=== PATIENT | female | born 1950 | race Caucasian/White ===

== ENCOUNTER 2021-04-08 02:33 | Inpatient (IN) | payer OTHER, MEDICAID, SELFPAY ==
[~2021-04-08] VITALS: Ht 165.1 cm; Wt 131.5 kg
[2021-04-08 02:33] VITALS: BP_SYST 135
--- NOTE | 2021-04-08 02:33 | NUR ---
Patient to ER bed 3 to gown for evaluation. Side rails up.
--- NOTE | 2021-04-08 02:35 | NUR ---
Assumed total care of patient. Patient AAO x0 BIB ALS from [facility] c/o bloody stool and abdominal distention. Patient arrived trach'd and vented. Patient afebrile and tachycardic upon arrival. Patient ventilator mode A/C with Peep of 5 and FiO2 set at 2LPM O2. Patient placed on cardiac surgeon, VSS, breathing even and unlabored, no signs of acute distress noted. Will continue to monitor.
[2021-04-08] MEDS ORDERED: NACL 0.9% 1,000 ML IV SCH (02:45)
[2021-04-08] MEDS ORDERED: PANTOPRAZOLE SODIUM 40 MG/VIAL (PROTONIX) IVP ONE (02:45)
--- NOTE | 2021-04-08 02:50 | NUR ---
# 20 gauge angiocath placed to left wrist. Use of asceptic technique. Opsite placed over site. Blood return noted. Blood for lab drawn from site. Flushed with 10 cc of normal saline. No evidence of infiltration noted. Patient tolerated well.
--- NOTE | 2021-04-08 02:58 | NUR ---
Radiology at bedside for chest xray.
[2021-04-08] MEDS ORDERED: LIP40 GT (03:08)
[2021-04-08] MEDS ORDERED: CHLO473M5 PO (03:09)
[2021-04-08] MEDS ORDERED: FOLI-43 GT (03:11)
[2021-04-08] MEDS ORDERED: HYDR-4038 GT (03:12)
[2021-04-08] MEDS ORDERED: LOSA100T3 GT (03:14)
[2021-04-08] MEDS ORDERED: MULT-1189 GT (03:14)
[2021-04-08] MEDS ORDERED: ALBMDI INH ×2 (03:16→03:17)
[2021-04-08] MEDS ORDERED: ASCO500T20 GT (03:18)
--- NOTE | 2021-04-08 03:18 | NUR ---
Medication reconciliation completed with information provided by [facility]. Any prior medication reconciliation on file was reviewed and corrected.
--- NOTE | 2021-04-08 03:20 | NUR ---
ER Dr. Arriaga at bedside examining patient.
[2021-04-08 03:27] LABS: BASOPHILS % (AUTO) 0.3 % (0.0-2.0); EOSINOPHILS % (AUTO) 0.3 % (0.0-4.0); HEMATOCRIT 32.5 % (36-48); MEAN CORPUSCULAR HEMOGLOBIN 30 pg (27-31); MEAN CORPUSCULAR HGB CONC 34 % (32-36); MEAN CORPUSCULAR VOLUME 90 fL (79.0-98.0); MONOCYTES # (AUTO) 0.9 K/uL (0.0-1.0); MONOCYTES % (AUTO) 9.1 % (1.7-9.3); NEUTROPHILS # (AUTO) 7.7 K/uL (1.8-7.7); NEUTROPHILS % (AUTO) 80.3 % (40.0-70.0); PLATELET COUNT (AUTO) 195 K/uL (130-430); RED BLOOD CELL COUNT(AUTO) 3.61 MIL/uL (4.2-6.2); RED CELL DISTRIBUTION WIDTH 13.8 % (9.0-15.0); WHITE BLOOD COUNT (AUTO) 9.6 K/uL (4.8-10.8)
[2021-04-08 03:45] LABS: INR 0.9 (0.8-1.2); PROTHROMBIN TIME 9.9 SECS (9.5-12.5)
[2021-04-08 04:03] LABS: ANION GAP 4 (5-15); CALCIUM 9.1 mg/dL (8.4-11.0); CHLORIDE 97 mmol/L (98-107); CREATININE 0.53 mg/dL (0.55-1.30); GLUCOSE 130 mg/dL (70-99); POTASSIUM 4.3 mmol/L (3.5-5.1); SODIUM SERUM 132 mmol/L (136-145); UREA NITROGEN, BLOOD 28 mg/dL (8-21)
--- NOTE | 2021-04-08 04:13 | NUR ---
Patient's code status is FULL CODE paperwork completed and placed in chart.
[2021-04-08 04:17] LABS: ALANINE AMINOTRANSFERASE 23 U/L (12-78); ALBUMIN 2.4 g/dL (3.4-4.8); ASPARTATE AMINOTRANSFERASE 21 U/L (10-37); LIPASE 94 U/L (73-393); TOTAL BILIRUBIN 0.2 mg/dL (0.0-1.0)
--- NOTE | 2021-04-08 04:23 | NUR ---
Patient transported to radiology via gurney, accompanied by seble quick RN, and respiratory therapist.
--- NOTE | 2021-04-08 04:52 | NUR ---
Returned from radiology, back to [facility]. VSS, breathing even and unlabored. No signs of acute distress noted.
--- NOTE | 2021-04-08 05:22 | NUR ---
Patient resting quietly. No acute distress noted. Vital signs within normal range.
--- NOTE | 2021-04-08 06:00 | NUR ---
Patient will be admitted to care of Dr. Bradshaw. Admitted to TELE unit. Will go to room pending. Belongings list completed. Complete and up to date summary report printed. SBAR report to be given at bedside with opportunity for questions.
--- NOTE | 2021-04-08 06:54 | NUR ---
Respiratory therapist at bedside.
--- NOTE | 2021-04-08 07:14 | NUR ---
Report given to YVONNE Ngo for continuation of care.
--- NOTE | 2021-04-08 07:15 | NUR ---
REPORT RECEIVED FROM YVONNE KUMAR FOR CONTINUING CARE
[2021-04-08 07:53] LABS: BASOPHILS % (AUTO) 0.2 % (0.0-2.0); EOSINOPHILS % (AUTO) 0.4 % (0.0-4.0); HEMATOCRIT 30.3 % (36-48); HEMOGLOBIN 10.3 g/dL (12.0-16.0); LYMPHOCYTES # (AUTO) 1.3 K/uL (1.0-5.5); LYMPHOCYTES % (AUTO) 15.1 % (20.5-51.5); MEAN CORPUSCULAR HEMOGLOBIN 31 pg (27-31); MEAN CORPUSCULAR HGB CONC 34 % (32-36); MEAN CORPUSCULAR VOLUME 90 fL (79.0-98.0); MONOCYTES # (AUTO) 0.8 K/uL (0.0-1.0); MONOCYTES % (AUTO) 9.4 % (1.7-9.3); NEUTROPHILS # (AUTO) 6.2 K/uL (1.8-7.7); NEUTROPHILS % (AUTO) 74.9 % (40.0-70.0); PLATELET COUNT (AUTO) 182 K/uL (130-430); RED BLOOD CELL COUNT(AUTO) 3.37 MIL/uL (4.2-6.2); RED CELL DISTRIBUTION WIDTH 13.7 % (9.0-15.0); WHITE BLOOD COUNT (AUTO) 8.3 K/uL (4.8-10.8)
[2021-04-08 08:14] LABS: ALANINE AMINOTRANSFERASE 25 U/L (12-78); ALBUMIN 2.1 g/dL (3.4-4.8); ANION GAP 7 (5-15); ASPARTATE AMINOTRANSFERASE 13 U/L (10-37); CALCIUM 8.7 mg/dL (8.4-11.0); CHLORIDE 99 mmol/L (98-107); CREATININE 0.48 mg/dL (0.55-1.30); GLUCOSE 118 mg/dL (70-99); POTASSIUM 4.3 mmol/L (3.5-5.1); SODIUM SERUM 134 mmol/L (136-145); TOTAL BILIRUBIN 0.4 mg/dL (0.0-1.0); UREA NITROGEN, BLOOD 24 mg/dL (8-21)
[2021-04-08 08:50] VITALS: BP_SYST 136
--- NOTE | 2021-04-08 08:50 | NUR ---
PT TRANSFERRED TO TELE 122A WITH RT
--- NOTE | 2021-04-08 09:00 | NUR ---
ADMIT NOTE Received pt from ER to the floor with a diagnosis of GI bleed. Admission process initiated. Patient oriented to pain management but unable to verbalize understanding. Patient also unable to demonstrate call light use. Will monitor closely.
--- NOTE | 2021-04-08 09:21 | NUR ---
CONSULTATION PAGED REASON FOR CONSULTATION:GI BLEED WAS CONSULT CALLED?Y PERSON WHO WAS NOTIFIED:MARCIN CONSULTING PHYSICIAN:ROBE PERRY BICYCLE COURIER SPECIALTY:GI BICYCLE COURIER PHONE NUMBER:[phone] REQUESTING PHYSICIAN:NIRMAL DE JESUS
--- NOTE | 2021-04-08 09:27 | NUR ---
CONSULTATION PAGED REASON FOR CONSULTATION:VENTA MAINTENANCE WAS CONSULT CALLED?Y PERSON WHO WAS NOTIFIED: CONSULTING PHYSICIAN: SUPER[employer]OR [employer] SPECIALTY:PULMONARY SUPER[employer]OR [employer] PHONE NUMBER:[phone] REQUESTING PHYSICIAN:NIRMAL DE JESUS
[2021-04-08 09:31] VITALS: BP_SYST 112
[2021-04-08] MEDS ORDERED: D5/0.45 NS 1,000 ML IV SCH (10:45)
[2021-04-08] MEDS ORDERED: DOCUSATE SODIUM 100 MG CAPSULE PO PRN (10:45)
[2021-04-08] MEDS ORDERED: ONDANSETRON HCL 4 MG/2 ML VIAL IVP PRN (10:45)
[2021-04-08] MEDS ORDERED: ACETAMINOPHEN 325 MG TABLET PO PRN (10:45)
[2021-04-08] MEDS ORDERED: NALOXONE HCL 0.4 MG/ML AMP (NARCAN) IVP PRN (10:45)
[2021-04-08] MEDS ORDERED: HYDROcodone/ACETAMIN 5-325 MG TAB (NORCO/ VICODIN) PO PRN (10:45)
[2021-04-08] MEDS ORDERED: metroNIDAZOLE 500 mg/NS 100 ML IV SCH (11:00)
[2021-04-08] MEDS ORDERED: IPRATROPIUM/ALBUTEROL SULFATE 3 ML AMPUL.NEB (DUONEB) INH SCH (11:15)
[2021-04-08] MEDS ORDERED: PANTOPRAZOLE SODIUM 40 MG/VIAL (PROTONIX) IVP SCH (11:15)
[2021-04-08 11:36] LABS: FREE T4 (FREE THYROXINE) 0.9 ng/dL (0.6-1.6); PHOSPHORUS 2.6 mg/dL (2.7-4.5); THYROID STIMULATING HORMONE 1.31 uIu/mL (0.34-4.82)
[2021-04-08] MEDS: NACL 0.9% 1,000 ML IV SCH ×2 (12:08→23:48)
[2021-04-08] MEDS: LEVOFLOXACIN IN DEXTROSE 5 % 100 ML IV SCH (12:08)
--- NOTE | 2021-04-08 12:10 | NUR ---
IV FLUID AND ANTIBIOTIC IV FLUIDS AND IV ANTIBIOTIC STARTED. TOLERATING CURRENT VENT SETTINGS. NO SIGN OF PAIN. REPOSITIONED. FALL AND SAFETY CHECKS DONE. WILL MONITOR.
[2021-04-08] MEDS: hydrALAZINE HCL 25 MG TABLET GT SCH ×2 (14:00→21:32)
--- NOTE | 2021-04-08 14:33 | NUR ---
MD ROUNDS DR.A KELSEY SAW PATIENT AT BEDSIDE. WAS AWARE THAT THE HOSPITAL DOES NOT HAVE A LUER-LOCK TYPE OF GTUBE VALVE. EXHAUSTED ALL EFFORTS. WILL TRY TO REACH OUT TO FAMILY OR THE CARE CENTER IF THE VALVE OR THE SYRINGE AVAILABLE. TABLETS NOT GIVEN.
--- NOTE | 2021-04-08 14:50 | NUR ---
SOHAIL LAMAS. WAS ABLE TO SPEAK TO DAUGHTER, KINJAL AND WAS UPDATED WITH PATIENT'S CURRENT PLAN OF CARE. SHE SAID SHE WILL TRY TO CALL THE FACILITY TO GET A VALVE FOR THE PATIENT. SAFETY CHECKS DONE. WILL MONITOR.
[2021-04-08] MEDS: IPRATROPIUM/ALBUTEROL SULFATE 3 ML AMPUL.NEB (DUONEB) INH SCH ×3 (15:07→23:28)
[2021-04-08] MEDS: metroNIDAZOLE 500 mg/NS 100 ML IV SCH ×2 (15:13→21:33)
--- NOTE | 2021-04-08 17:35 | NUR ---
GTUBE VALVE WAS ABLE TO TALK TO CAMELIA FROM [facility] AND SHE CONFIRMED THAT THEY WILL SEND IN A SHAINA VALVE, A COUPLE OF SYRINGES AND THE TUBE, THROUGH THE PATIENT'S DAUGHTER, KINJAL.
[2021-04-08] MEDS ORDERED: GOLYTELY / COLYTE SOLUTION 4 LITERS GT ONE (18:07)
[2021-04-08] MEDS: METOCLOPRAMIDE HCL 10 MG/2 ML VIAL IVP SCH ×2 (18:19→23:39)
[2021-04-08 18:23] VITALS: BP_SYST 128
--- NOTE | 2021-04-08 18:48 | NUR ---
CLOSING NOTES RESTING. NO SIGN OF PAIN. [facility]. IV FLUIDS INFUSING WELL. GTUBE INTACT. FALL AND SAFETY CHECKS IN PLACE. WILL ENDORSE TO NIGHT NURSE.
[2021-04-08 19:35] VITALS: BP_SYST 137
--- NOTE | 2021-04-08 19:35 | NUR ---
INITIAL NOTE AT INITIAL ASSESSMENT, PATIENT IS RESTING IN BED, STABLE, NO SIGNS OF RESPIRATORY DISTRESS. PATIENT SHOWS NO PAIN PER FLACC SCALE USED. PLAN OF CARE FOR THE EVENING IS COMMUNICATED WITH THE PATIENT. PATIENT IS UNABLE TO DEMONSTRATE CORRECT USAGE OF CALL LIGHT AT THIS TIME DUE TO COGNITIVE IMPAIRMENT; FREQUENT ROUNDING WILL BE COMPLETED THROUGHOUT THE NIGHT TO MEET ALL PATIENT NEEDS. BED IS LOCKED, ALARMED, AND AT THE LOWEST LEVEL. FALL SAFETY EDUCATION PROVIDED. FALL, SAFETY, AND RESPIRATORY PRECAUTIONS WILL BE TAKEN THROUGHOUT THE SHIFT.
[2021-04-08] MEDS: CHLORHEXIDINE GLUCONATE 15 ML/DOSE, 480 ML MM SCH (20:28)
[2021-04-08] MEDS: ATORVASTATIN 20 MG TABLET GT SCH (20:34)
--- NOTE | 2021-04-08 22:30 | NUR ---
HYGIENE CARE NOTE HYGIENE CARE IS PROVIDED AT THIS TIME, FRESH LINENS PROVIDED, AND PATIENT IS REPOSITIONED FOR COMFORT. PATIENT TOLERATED WELL. CALL LIGHT PLACED WITHIN REACH. BED IS LOCKED, ALARMED, AND AT THE LOWEST LEVEL.
--- NOTE | 2021-04-08 23:00 | NUR ---
COMMUNICATION W/ DAUGHTER COMMUNICATED WITH PATIENT'S DAUGHTER KINJAL [phone], UPDATE GIVEN TO HER. ALL QUESTIONS ANSWERED.
[2021-04-09 00:48] VITALS: BP_SYST 154
--- NOTE | 2021-04-09 02:30 | NUR ---
GOLYTELY STARTED / GTUBE SUPPLIES RECEIVED PATIENT'S DAUGHTER BROUGHT IN SUPPLIES FOR PATIENT'S G-TUBE. G TUBE ACCESS WAS ESTABLISHED WITH SUPPLIES. PATIENT IS STARTED ON GOLYTELY AT THIS TIME, WILL MONITOR CLOSELY FOR TOLERANCE.
[2021-04-09] MEDS: IPRATROPIUM/ALBUTEROL SULFATE 3 ML AMPUL.NEB (DUONEB) INH SCH ×6 (03:34→23:26)
[2021-04-09] MEDS: METOCLOPRAMIDE HCL 10 MG/2 ML VIAL IVP SCH ×4 (05:32→23:56)
--- NOTE | 2021-04-09 06:35 | NUR ---
CLOSING NOTE ABOUT 800 ML OF GOLYTELY WAS GIVEN TO PATIENT DURING THE SHIFT, PATIENT TOLERATED WELL WITH NO RESIDUALS. SHE ALSO CONTINUED HAVING DARK LOOSE STOOLS WHICH ARE GETTING INCIDENT RESPONSE MANAGER SINCE GOLYTELY WAS INITIATED- DR. HILL MADE AWARE. PATIENT SLEPT WELL THROUGHOUT THE SHIFT, NO SHORTNESS OF BREATH NOTED. AT THIS TIME, PATIENT IS RESTING IN BED, STABLE, NO SIGNS OF RESPIRATORY DISTRESS. BED IS LOCKED, ALARMED, AND AT THE LOWEST LEVEL. FALL, SAFETY, AND RESPIRATORY PRECAUTIONS HAVE BEEN TAKEN THROUGHOUT THE SHIFT. WILL CONTINUE TO MONITOR UNTIL SHIFT REPORT IS GIVEN AT BEDSIDE TO AM NURSE.
[2021-04-09] MEDS: metroNIDAZOLE 500 mg/NS 100 ML IV SCH ×3 (06:44→22:15)
[2021-04-09] MEDS: hydrALAZINE HCL 25 MG TABLET GT SCH ×3 (06:53→22:00)
[2021-04-09 06:54] LABS: BASOPHILS % (AUTO) 0.2 % (0.0-2.0); EOSINOPHILS % (AUTO) 0.5 % (0.0-4.0); HEMOGLOBIN 9.7 g/dL (12.0-16.0); LYMPHOCYTES # (AUTO) 1.1 K/uL (1.0-5.5); LYMPHOCYTES % (AUTO) 13.7 % (20.5-51.5); MEAN CORPUSCULAR HEMOGLOBIN 30 pg (27-31); MEAN CORPUSCULAR HGB CONC 34 % (32-36); MEAN CORPUSCULAR VOLUME 90 fL (79.0-98.0); MONOCYTES # (AUTO) 0.7 K/uL (0.0-1.0); NEUTROPHILS % (AUTO) 76.6 % (40.0-70.0); PLATELET COUNT (AUTO) 180 K/uL (130-430); RED CELL DISTRIBUTION WIDTH 13.7 % (9.0-15.0); WHITE BLOOD COUNT (AUTO) 7.8 K/uL (4.8-10.8)
--- NOTE | 2021-04-09 07:40 | NUR ---
Nutrition Update Vish Scale 14 noted. Pt admitted for GI Bleed Diet: NPO BMI: 48.3 kg/m2 RD to follow per nutrition care standards.
[2021-04-09 08:00] VITALS: BP_SYST 151
[2021-04-09] MEDS: ASCORBIC ACID 500 MG TABLET GT SCH (08:51)
[2021-04-09] MEDS: PANTOPRAZOLE SODIUM 40 MG/VIAL (PROTONIX) IVP SCH (08:51)
[2021-04-09] MEDS: MULTIVITS,CA,MINERALS/IRON/FA 1 TABLET GT SCH (08:51)
[2021-04-09] MEDS: LOSARTAN POTASSIUM 50 MG TABLET (COZAAR) GT SCH (08:51)
[2021-04-09] MEDS: FOLIC ACID 1 MG TABLET GT SCH (08:51)
[2021-04-09] MEDS: CHLORHEXIDINE GLUCONATE 15 ML/DOSE, 480 ML MM SCH ×2 (08:53→22:45)
[2021-04-09 09:05] LABS: ANION GAP 10 (5-15); CALCIUM 8.6 mg/dL (8.4-11.0); CHLORIDE 101 mmol/L (98-107); GLUCOSE 100 mg/dL (70-99); POTASSIUM 3.7 mmol/L (3.5-5.1); SODIUM SERUM 137 mmol/L (136-145); UREA NITROGEN, BLOOD 24 mg/dL (8-21)
[2021-04-09 09:06] LABS: CREATININE 0.55 mg/dL (0.55-1.30); PHOSPHORUS 2.6 mg/dL (2.7-4.5)
[2021-04-09] MEDS ORDERED: BISACODYL 10 MG/SUPPOSITORY RC ONE (10:15)
[2021-04-09] MEDS: LEVOFLOXACIN IN DEXTROSE 5 % 100 ML IV SCH (11:35)
[2021-04-09 12:02] VITALS: BP_SYST 139
[2021-04-09] MEDS: NACL 0.9% 1,000 ML IV SCH ×2 (13:40→16:35)
[2021-04-09] MEDS ORDERED: MUPIROCIN 2% TOPICAL OINTMENT 22 GM NS ONE (13:45)
--- NOTE | 2021-04-09 14:06 | NUR ---
Dietitian Recommendations *Recommend: resume EN support when medically appropriate. *Recommend: Jevity 1.2 at 65ml/hr, FWF 200ml Q6H via GT. Provides: 1872 kcal, 86gm protein and 1258ml free water daily. Meets: 99% of lower end of estimated calorie needs and 95% of upper end of estimated protein needs. Please see Nutritional Assessment for details. SP, RD
[2021-04-09 16:01] VITALS: BP_SYST 134
--- NOTE | 2021-04-09 17:00 | NUR ---
Note Pt has been resting in bed all shift with daughter Sosa at bedside since start of shift. Pt's Mechanical Ventilation all shift with RT working with pt all shift on ventilation needs and scheduled protocols. Pt was checked on by Dr Hines this am. Pt's GT now in place after being displaced this am. Pt was given her Golytely through GT and Dulcolax suppository was given as well. Pt's tele unit attached and intact all shift. Pt was given hygiene care and partial bed bath throughout the shift for stool/urine incontinence. Pt was turned q2' throughout the shift for promotion of circulation of back and sacral areas. Pt stable and quiet at this time. Call light within reach and pt next to nurses' station all shift for close observation.
--- NOTE | 2021-04-09 18:35 | NUR ---
Note Pt resting in bed with ventilation on and RT taking care O2 needs. Pt has new IV in right forearm - IV in left forearm was out. Pt was checked on q1' and PRN all shift for needs and care. Pt's bed in low position and bed alarm on all shift. Pt was given hygiene care for urine and bowel incontinence all shift. GT site intact and patent. Tele unit attached and intact all shift. Call light within reach.
[2021-04-09 20:10] VITALS: BP_SYST 130
--- NOTE | 2021-04-09 20:30 | NUR ---
WHILE ASSESSING PT, G-TUBE WAS PULLED OUT OF PT ABDOMEN. STATED FROM YVONNE RUIZ THAT THE MD (PRINCESS CABRAL) IS AWARE OF THE SITUATION AND WAS TOLD TO REINSERT THE G-TUBE TO PRESERVE THE STOMA ASSESSING THE G-TUBE AND W/ PT FAMILY IN ROOM, DECIDED TO WAIT ON \THE DR TO REINSERT. G-TUBE WAS ALSO DIRTY AND CLOGGED. BIOLOGICAL SCIENCE TECHNICIAN AWARE OF DECISION TO NOT RE-INSERT. JUVENTINO FRANKS RN
[2021-04-09] MEDS: ATORVASTATIN 20 MG TABLET GT SCH (21:00)
[2021-04-09] MEDS: MUPIROCIN 2% TOPICAL OINTMENT 22 GM NS SCH (22:58)
[2021-04-10] VITALS (7 sets, daily range): BP systolic 132–158
[2021-04-10] MEDS: IPRATROPIUM/ALBUTEROL SULFATE 3 ML AMPUL.NEB (DUONEB) INH SCH ×5 (03:46→20:48)
[2021-04-10] MEDS: hydrALAZINE HCL 25 MG TABLET GT SCH ×4 (06:00→21:55)
[2021-04-10 06:29] LABS: BASOPHILS % (AUTO) 0.3 % (0.0-2.0); EOSINOPHILS % (AUTO) 0.7 % (0.0-4.0); HEMOGLOBIN 9.5 g/dL (12.0-16.0); LYMPHOCYTES # (AUTO) 1.2 K/uL (1.0-5.5); LYMPHOCYTES % (AUTO) 16.5 % (20.5-51.5); MEAN CORPUSCULAR HEMOGLOBIN 31 pg (27-31); MEAN CORPUSCULAR HGB CONC 34 % (32-36); MEAN CORPUSCULAR VOLUME 90 fL (79.0-98.0); MONOCYTES # (AUTO) 0.6 K/uL (0.0-1.0); MONOCYTES % (AUTO) 8.3 % (1.7-9.3); NEUTROPHILS # (AUTO) 5.3 K/uL (1.8-7.7); NEUTROPHILS % (AUTO) 74.2 % (40.0-70.0); PLATELET COUNT (AUTO) 179 K/uL (130-430); RED CELL DISTRIBUTION WIDTH 13.9 % (9.0-15.0); WHITE BLOOD COUNT (AUTO) 7.1 K/uL (4.8-10.8)
[2021-04-10] MEDS: METOCLOPRAMIDE HCL 10 MG/2 ML VIAL IVP SCH ×3 (06:37→17:02)
[2021-04-10] MEDS: metroNIDAZOLE 500 mg/NS 100 ML IV SCH ×3 (06:37→21:57)
[2021-04-10 06:43] LABS: ANION GAP 5 (5-15); CALCIUM 8.5 mg/dL (8.4-11.0); CHLORIDE 105 mmol/L (98-107); CREATININE 0.49 mg/dL (0.55-1.30); GLUCOSE 85 mg/dL (70-99); PHOSPHORUS 2.7 mg/dL (2.7-4.5); POTASSIUM 3.9 mmol/L (3.5-5.1); SODIUM SERUM 139 mmol/L (136-145); UREA NITROGEN, BLOOD 21 mg/dL (8-21)
--- NOTE | 2021-04-10 07:22 | NUR ---
CLOSING NOTE: NO SIGNIFICANT EVENTS THROUGHOUT THE NIGHT. PT FAMILY AWARE OF THE G-TUBE NOT REINSERTED AND MEDICATION NOT GIVEN. SPOKEN TO KINJAL (TEJAS) WAS THE ONE SPOKEN TOO. DR CABRAL AT BEDSIDE AT THIS TIME VERBAL ORDER GIVEN FOR NGT TO BE PLACED, GOLYTLY TO BE FINISHED AND CXR FOR PLACEMENT. WILL ENDORSE TO YVONNE RUIZ RN
[2021-04-10] MEDS: BISACODYL 10 MG/SUPPOSITORY RC SCH (09:00)
[2021-04-10] MEDS: FOLIC ACID 1 MG TABLET GT SCH (09:00)
[2021-04-10] MEDS: MULTIVITS,CA,MINERALS/IRON/FA 1 TABLET GT SCH (09:00)
[2021-04-10] MEDS: ASCORBIC ACID 500 MG TABLET GT SCH (09:00)
[2021-04-10] MEDS: CHLORHEXIDINE GLUCONATE 15 ML/DOSE, 480 ML MM SCH ×2 (09:00→20:56)
[2021-04-10] MEDS: LOSARTAN POTASSIUM 50 MG TABLET (COZAAR) GT SCH (09:00)
[2021-04-10] MEDS: LEVOFLOXACIN IN DEXTROSE 5 % 100 ML IV SCH (11:55)
[2021-04-10] MEDS: MUPIROCIN 2% TOPICAL OINTMENT 22 GM NS SCH ×2 (11:56→20:30)
[2021-04-10] MEDS: PANTOPRAZOLE SODIUM 40 MG/VIAL (PROTONIX) IVP SCH (11:56)
--- NOTE | 2021-04-10 12:00 | NUR ---
NOTE Pt has NGT placed by [facility] RN - x-ray to confirm placement was done. Pt's daughters Gianna have been at bedside since 0930am. Pt resting in bed and ventilation on going to oxygenate pt. O2 sats are 94%-95%. Pt was given hygiene care and bed bath at 09am and 11am. Pt also given Golytely through NGT q1' as per Dr Hines's order. Pt was seen and assessed by Dr Leos, Dr Hines and Dr Tian this am. Pt has no needs at this time. Family at bedside. Call light within reach. Pt's bed alarm on and bed in low position all shift. Pt checked on q1' and PRN all shift for needs and care. GT site covered with dressing. Pt maintained with safety and isolation precautions all shift.
[2021-04-10] MEDS: NACL 0.9% 1,000 ML IV SCH (16:20)
--- NOTE | 2021-04-10 18:35 | NUR ---
Note Pt sitting up in bed with HOB at 75'. Pt's trach intact and oxygenating pt well all shift. Pt's NGT is intact and patent - using to give pt Golytely q1'. Pt was changed and cleaned frequently for urine/bowel incontinence. Pt's stool still black and loose. Pt was checked on q1' and PRN all shift for needs and care. Pt's bed in low position and bed alarm on all shift. Tele unit intact and attached all shift. Call light within reach. Pt next to nurses' station for close observation.
--- NOTE | 2021-04-10 19:41 | NUR ---
OPENING NOTES: Received report from dayshift nurse. Patient is resting in bed, awake and in stable condition. T Bar noted at 5L, tolerating well. IV noted on right hand with dry and intact dressing. NG tube noted on right nostril. Ensured all safety precautions. Bed is locked and in the lowest position with alarm on and call light within reach.
[2021-04-10] MEDS: ATORVASTATIN 20 MG TABLET GT SCH (20:29)
--- NOTE | 2021-04-10 20:30 | NUR ---
MEDICATION ADMINISTRATION PATIENT IS RESTING WITHOUT ANY SIGNS OF DISTRESS OR DISCOMFORT. ADMINISTERED SCHEDULED MEDICATION BY ORDER OF MD. PATIENT TOLERATED WELL. PATIENT WITH LARGE BROWN WATERY BOWEL MOVEMENT AT THIS TIME GAVE PATIENT BED BATH TOLERATED CARE WELL
[2021-04-10] MEDS: NEOMY SULF/BACITRAC ZN/POLY 28 GM OINT..GM. TP PRN (20:31)
--- NOTE | 2021-04-10 21:55 | NUR ---
PATIENT HAD PRESENCE OF SECRETIONS SUCTION PROVIDED PATIENT TOLERATED WELL WILL CONTINUE TO MONITOR
[2021-04-11] VITALS: BP_SYST 149
--- NOTE | 2021-04-11 | NUR ---
RN ROUNDS PATIENT IS RESTING IN BED. NO SIGNS OF DISTRESS OR DISCOMFORT PATIENT IS RECEIVING OXYGEN VIA T BAR AT 5L TOLERATING WELL GOLYTELY IS BEING ADMINISTERED ORDERED BY MD VIA NG TUBE PATIENT TOLERATING WELL WILL CONTINUE TO MONITOR
[2021-04-11] MEDS: METOCLOPRAMIDE HCL 10 MG/2 ML VIAL IVP SCH ×3 (00:35→11:39)
--- NOTE | 2021-04-11 05:23 | NUR ---
RT NOTES TRACH CARE DONE WITHOUT INCIDENT. PT REMAIN ON 28% COOL AEROSOL TOLERATING WELL. SXN PRN WITH SMALL TO MODERATE AMOUNT OF THICK YELLOW SECRETIONS. NO RESP DISTRESS NOTED. AMBU BAG IS AT BEDSIDE.
[2021-04-11] MEDS: NACL 0.9% 1,000 ML IV SCH (06:14)
[2021-04-11] MEDS: hydrALAZINE HCL 25 MG TABLET GT SCH ×3 (06:16→22:09)
[2021-04-11] MEDS: metroNIDAZOLE 500 mg/NS 100 ML IV SCH ×3 (06:17→22:10)
[2021-04-11 06:52] LABS: BASOPHILS % (AUTO) 0.3 % (0.0-2.0); EOSINOPHILS # (AUTO) 0.1 K/uL (0.0-0.4); EOSINOPHILS % (AUTO) 0.8 % (0.0-4.0); HEMATOCRIT 34.2 % (36-48); HEMOGLOBIN 11.3 g/dL (12.0-16.0); LYMPHOCYTES # (AUTO) 1.9 K/uL (1.0-5.5); LYMPHOCYTES % (AUTO) 19.8 % (20.5-51.5); MEAN CORPUSCULAR HEMOGLOBIN 30 pg (27-31); MEAN CORPUSCULAR HGB CONC 33 % (32-36); MEAN CORPUSCULAR VOLUME 92 fL (79.0-98.0); MONOCYTES # (AUTO) 0.6 K/uL (0.0-1.0); MONOCYTES % (AUTO) 6.3 % (1.7-9.3); NEUTROPHILS # (AUTO) 7.1 K/uL (1.8-7.7); NEUTROPHILS % (AUTO) 72.8 % (40.0-70.0); PLATELET COUNT (AUTO) 251 K/uL (130-430); RED BLOOD CELL COUNT(AUTO) 3.74 MIL/uL (4.2-6.2); RED CELL DISTRIBUTION WIDTH 14.1 % (9.0-15.0); WHITE BLOOD COUNT (AUTO) 9.7 K/uL (4.8-10.8)
--- NOTE | 2021-04-11 07:15 | NUR ---
RT NOTE: 0715 Pt placed on vent per Dr Tian due to respiratory distress. Prior to placing pt on vent, pt was tachypneic, tachycardic, and SpO2 low. Inspected trach and it was almost out of stoma. Repositioned and slid trach back in place. Adjusted trach ties. Placed pt on vent. Confirmed placement with auscultation and improving vital signs. Will continue on vent support at this time. Trach is secure. Addendum: 04/11/21 at 0958 by Shanique Villa RT Amended: Links added.
--- NOTE | 2021-04-11 07:15 | NUR ---
DR. COX AT BEDSIDE, PT WITH DECREASED O2. PER DR. COX PATIENT TO GO BACK ON VENT. RT CALLED
[2021-04-11] MEDS: IPRATROPIUM/ALBUTEROL SULFATE 3 ML AMPUL.NEB (DUONEB) INH SCH ×5 (07:22→23:35)
--- NOTE | 2021-04-11 07:30 | NUR ---
Opening Note Timothy night warehouse manager nurse, called rapid response, RT shahzad) at bedside, reinserted trache. Patient stable, o2 at 98% with ventilator settings. IV noted on right hand with dry and intact dressing. NG tube noted on right nostril. Ensured all safety precautions. Bed is locked and in the lowest position with alarm on and call light within reach.
[2021-04-11 07:45] LABS: ANION GAP 13 (5-15); CALCIUM 8.7 mg/dL (8.4-11.0); CHLORIDE 105 mmol/L (98-107); CREATININE 0.55 mg/dL (0.55-1.30); GLUCOSE 71 mg/dL (70-99); POTASSIUM 3.8 mmol/L (3.5-5.1); SODIUM SERUM 142 mmol/L (136-145); UREA NITROGEN, BLOOD 21 mg/dL (8-21)
--- NOTE | 2021-04-11 07:45 | NUR ---
CLOSING NOTES: PATIENT WAS PLACED ON VENT, IN STABLE CONDITION. PER DR. COX MONITOR PATIENT AND UPDATE ANY CHANGES. DAYSHIFT NURSE ALSO AT BEDSIDE. REPORT WAS GIVEN. PATIENT STILL HAVING BROWN WATERY STOOLS, DR. CABRAL AT BEDSIDE AND INFORMATION REGARDING BOWEL MOVEMENT WAS GIVEN. GOLYTELY WAS COMPLETED BY 0600 TODAY. ALL NEEDS WERE MET THROUGHOUT SHIFT AND PATIENT HAS BEEN ENDORSED TO DAYSHIFT NURSE.
[2021-04-11 08:00] VITALS: BP_SYST 140
[2021-04-11] MEDS: BISACODYL 10 MG/SUPPOSITORY RC SCH (08:59)
[2021-04-11] MEDS: FOLIC ACID 1 MG TABLET GT SCH (09:21)
[2021-04-11] MEDS: MULTIVITS,CA,MINERALS/IRON/FA 1 TABLET GT SCH (09:21)
[2021-04-11] MEDS: PANTOPRAZOLE SODIUM 40 MG/VIAL (PROTONIX) IVP SCH (09:22)
[2021-04-11] MEDS: ASCORBIC ACID 500 MG TABLET GT SCH (09:22)
[2021-04-11] MEDS: LOSARTAN POTASSIUM 50 MG TABLET (COZAAR) GT SCH (09:22)
[2021-04-11] MEDS: CHLORHEXIDINE GLUCONATE 15 ML/DOSE, 480 ML MM SCH ×2 (09:23→22:21)
[2021-04-11] MEDS: MUPIROCIN 2% TOPICAL OINTMENT 22 GM NS SCH ×2 (09:23→22:14)
--- NOTE | 2021-04-11 09:29 | NUR ---
Spoke to Dr. Hines discussed CT results, orders for coloscopy and peg tube placement, daughter at bedside, will get consent
--- NOTE | 2021-04-11 09:40 | NUR ---
daughter at bedside (Sosa) signed consent for egd and coloscopy, Donny signed consents.
[2021-04-11] MEDS: LEVOFLOXACIN IN DEXTROSE 5 % 100 ML IV SCH (11:39)
[2021-04-11 12:05] VITALS: BP_SYST 140
[2021-04-11] MEDS ORDERED: GOLYTELY / COLYTE SOLUTION 4 LITERS PO ONE (14:00)
--- NOTE | 2021-04-11 14:00 | NUR ---
Daughter at bedside Narda Stated that she needs to be the one to sigbn consents, new consents printed and signed, need to be signed by . Donny will endorse to Donny and to next nurse.
[2021-04-11 16:12] VITALS: BP_SYST 154
--- NOTE | 2021-04-11 18:49 | NUR ---
Transfer to bed 120 A
--- NOTE | 2021-04-11 18:50 | NUR ---
Closing Note Patient on vent, IN STABLE CONDITION. PER DR. COX MONITOR PATIENT AND UPDATE ANY CHANGES. PATIENT STILL HAVING BROWN WATERY STOOLS, continued to give go lytely, RT at bedside assisting with vent set up with transfer to new room. Will endorse to caustic cresylate shift superintendent nurse.
--- NOTE | 2021-04-11 19:15 | NUR ---
OPENING NOTES: Patient in bed, eyes closed, breathing evenly and nonlabored on trach to vent, patient tolerating well, SPO2 at 98%. No s/s of distress, HOB elevated. Patient has an IV on the L wrist 22G, patent, benign, and flushing. No s/s of infection or infiltration. Patient has an NGT through the right nostril. Fall/safety/isolation precaution. Will continue to monitor. Addendum: 04/12/21 at 0239 by Peace Pires RN Received patient report from morning shift nurse.
[2021-04-11 20:00] VITALS: BP_SYST 154
[2021-04-11] MEDS: ATORVASTATIN 20 MG TABLET GT SCH (22:08)
--- NOTE | 2021-04-12 | NUR ---
ROUNDS: Patient in bed, eyes closed, breathing evenly and nonlabored with trach to vent. Patient tolerating it well, SPO2 at 99%. No s/s of distress. All needs met at this time.
[2021-04-12 01:00] VITALS: BP_SYST 144
[2021-04-12 01:26] VITALS: BP_SYST 144
[2021-04-12] MEDS: IPRATROPIUM/ALBUTEROL SULFATE 3 ML AMPUL.NEB (DUONEB) INH SCH ×5 (03:49→20:09)
[2021-04-12] MEDS: hydrALAZINE HCL 25 MG TABLET GT SCH ×4 (06:00→22:59)
[2021-04-12] MEDS: NACL 0.9% 1,000 ML IV SCH ×3 (06:15→21:40)
[2021-04-12] MEDS: metroNIDAZOLE 500 mg/NS 100 ML IV SCH ×3 (06:16→22:55)
--- NOTE | 2021-04-12 06:48 | NUR ---
CLOSING NOTES: Patient in bed, eyes closed, breathing evenly and nonlabored on trach to vent, patient tolerating well, SPO2 at 99%. No s/s of distress, HOB elevated. Patient has an IV on the L wrist 22G, patent, benign, and flushing. No s/s of infection or infiltration. Patient has an NGT through the right nostril. Fall/safety/isolation precaution. Will continue to monitor and endorse care to morning shift rn.
[2021-04-12 07:06] LABS: BASOPHILS % (AUTO) 0.5 % (0.0-2.0); EOSINOPHILS # (AUTO) 0.1 K/uL (0.0-0.4); EOSINOPHILS % (AUTO) 1.5 % (0.0-4.0); HEMATOCRIT 30.1 % (36-48); HEMOGLOBIN 10.2 g/dL (12.0-16.0); LYMPHOCYTES # (AUTO) 1.2 K/uL (1.0-5.5); LYMPHOCYTES % (AUTO) 21.4 % (20.5-51.5); MEAN CORPUSCULAR HEMOGLOBIN 31 pg (27-31); MEAN CORPUSCULAR HGB CONC 34 % (32-36); MEAN CORPUSCULAR VOLUME 91 fL (79.0-98.0); MONOCYTES # (AUTO) 0.6 K/uL (0.0-1.0); NEUTROPHILS # (AUTO) 3.7 K/uL (1.8-7.7); NEUTROPHILS % (AUTO) 65.6 % (40.0-70.0); PLATELET COUNT (AUTO) 208 K/uL (130-430); RED BLOOD CELL COUNT(AUTO) 3.32 MIL/uL (4.2-6.2); RED CELL DISTRIBUTION WIDTH 13.9 % (9.0-15.0); WHITE BLOOD COUNT (AUTO) 5.7 K/uL (4.8-10.8)
[2021-04-12] MEDS ORDERED: SIMETHICONE 40 MG/0.6 ML ML ONE (07:09)
[2021-04-12 07:33] LABS: ANION GAP 9 (5-15); CALCIUM 8.2 mg/dL (8.4-11.0); CHLORIDE 105 mmol/L (98-107); CREATININE 0.47 mg/dL (0.55-1.30); GLUCOSE 118 mg/dL (70-99); SODIUM SERUM 143 mmol/L (136-145); UREA NITROGEN, BLOOD 13 mg/dL (8-21)
[2021-04-12 07:46] LABS: INR 1.1 (0.8-1.2); PROTHROMBIN TIME 11.1 SECS (9.5-12.5)
[2021-04-12 08:00] VITALS: BP_SYST 167
--- NOTE | 2021-04-12 08:00 | NUR ---
pt kept npo for egp/peg and colonoscopy.
[2021-04-12 08:28] LABS: POTASSIUM 2.4 mmol/L (3.5-5.1)
[2021-04-12] MEDS: PANTOPRAZOLE SODIUM 40 MG/VIAL (PROTONIX) IVP SCH (08:57)
[2021-04-12] MEDS: CHLORHEXIDINE GLUCONATE 15 ML/DOSE, 480 ML MM SCH ×2 (09:00→23:00)
[2021-04-12] MEDS: BISACODYL 10 MG/SUPPOSITORY RC SCH (09:00)
[2021-04-12] MEDS: ASCORBIC ACID 500 MG TABLET GT SCH (09:00)
[2021-04-12] MEDS: MUPIROCIN 2% TOPICAL OINTMENT 22 GM NS SCH ×2 (09:02→23:01)
--- NOTE | 2021-04-12 09:15 | NUR ---
[phone] SPOKE WITH ZULEYMA.
[2021-04-12] MEDS ORDERED: POTASSIUM CHLORIDE 20 MEQ/PKT PACKET PO ONE ×2 (09:30→16:45)
--- NOTE | 2021-04-12 09:30 | NUR ---
HIGH ALERT NOTE: Called Dr. WILL back at identified within the medical roster to verify physician authenticity.
[2021-04-12] MEDS: MEPERIDINE 100 MG INJ. 100 MG/ML VIAL ONE ×2 (11:14→11:16)
[2021-04-12] MEDS: MIDAZOLAM HCL 5 MG/5 ML VIAL ONE ×2 (11:14→11:16)
--- NOTE | 2021-04-12 12:18 | NUR ---
dr hinojosa gave okay to use the g-tube , also gave of to dc pt to snf.
[2021-04-12] MEDS: FOLIC ACID 1 MG TABLET GT SCH (12:29)
[2021-04-12] MEDS: MULTIVITS,CA,MINERALS/IRON/FA 1 TABLET GT SCH (12:29)
[2021-04-12] MEDS: LOSARTAN POTASSIUM 50 MG TABLET (COZAAR) GT SCH (12:30)
[2021-04-12] MEDS: amLODIPine BESYLATE 5 MG TABLET PO SCH (12:32)
[2021-04-12] MEDS: LEVOFLOXACIN IN DEXTROSE 5 % 100 ML IV SCH (12:36)
[2021-04-12 12:40] VITALS: BP_SYST 162
--- NOTE | 2021-04-12 13:09 | NUR ---
[facility] [phone] SPOKE WITH NAN.
[2021-04-12] MEDS ORDERED: POTASSIUM CHLORIDE 20 MEQ/PKT PACKET ONE (13:30)
--- NOTE | 2021-04-12 13:32 | NUR ---
per dr escoto , it is okay to give the 2nd dose of potassium.
--- NOTE | 2021-04-12 14:36 | NUR ---
Patient accepted at [facility] room 205A-number for report [phone] [facility] on will call DC disposition 03-sub acute
[2021-04-12 15:55] VITALS: BP_SYST 130
--- NOTE | 2021-04-12 16:15 | NUR ---
[phone] SPOKE WITH ASHLEY.
--- NOTE | 2021-04-12 16:39 | NUR ---
HIGH ALERT NOTE: Called Dr. WILL back at [phone] identified within the medical roster to verify physician authenticity.
--- NOTE | 2021-04-12 16:39 | NUR ---
SPOKE WITH OMKAR OF [facility], INFORMED HER THAT PT'S DC WAS HELD DUE TO LOW LEVEL OF K.
--- NOTE | 2021-04-12 16:39 | NUR ---
INFORMED DR WILL ABOUT K LEVEL OF 3.1. NEW ORDER RECEIVED.
[2021-04-12] MEDS ORDERED: MAGNESIUM SULFATE 50 ML IV ONE (16:45)
--- NOTE | 2021-04-12 18:08 | NUR ---
Nutrition F/U RD reviewed pt's current EMR including diet Hx, physician notes, nursing notes, pertinent labs/meds/procedures, care trends, and care activity. Short note d/t high pt load. Current Diet Order: NPO x1 day RD bedside visit deferred d/t lack of time. Per EMR review, GI MD cleared pt to start GT feeding -- PEG was placed earlier today. JANEI orders state to feed Jevity 1.2 at 50 cc/hr, water flush 100 cc [id number]. However, this does not meet pt's nutritional needs. Agree w/ previous RD w/ goal of 65 ml/hr. Problem/Etiology/Signs/Symptoms Predicted suboptimal EN intake r/t altered GI function AEB no EN infusing d/t abdominal distention and melena. *ongoing Expected Outcomes/Goals Monitor EN tolerance and intake w/ goal of pt meeting more than 75% of estimated nutritional needs, labs trending WNL, normal GI function, skin integrity/wt maintenance. Dietitian Recommendations * Recommend Jevity 1.2 at 65 ml/hr, Free Water Flush: 200ml Q6H via GT Provides: 1872 kcal, 86gm protein and 1258ml free water daily Meets: 99% of lower end of estimated calorie needs and 95% of upper end of estimated protein needs Follow Up High Risk: F/U in 2-3 days
--- NOTE | 2021-04-12 18:11 | NUR ---
Dietitian Recommendations * Recommend Jevity 1.2 at 65ml/hr, Free Water Flush: 200ml Q6H via GT Provides: 1872 kcal, 86gm protein and 1258ml free water daily Meets: 99% of lower end of estimated calorie needs and 95% of upper end of estimated protein needs LP, RD Please refer to Nutrition F/U for details.
--- NOTE | 2021-04-12 19:15 | NUR ---
OPENING NOTES: Received patient report from morning shift rn. Patient in bed, eyes closed breathing evenly and nonlabored with trach to vent, patient tolerating it well, HOB elevated, no s/s of distress. Patient has a g tube. Patient has an IV site patent, benign, and flushing. No s/s of infection or infiltration. Fall/safety/isolation precaution. Will continue to monitor.
[2021-04-12 20:00] VITALS: BP_SYST 135
[2021-04-12] MEDS: ATORVASTATIN 20 MG TABLET GT SCH (22:55)
[2021-04-13] VITALS: BP_SYST 127
--- NOTE | 2021-04-13 | NUR ---
ROUNDS: Patient in bed, eyes closed, breathing evenly and nonlabored on trach to vent, patient tolerating it well, no s/s of distress. All needs met at this time. Will continue to monitor.
[2021-04-13] MEDS: IPRATROPIUM/ALBUTEROL SULFATE 3 ML AMPUL.NEB (DUONEB) INH SCH ×4 (01:04→11:00)
[2021-04-13] MEDS: metroNIDAZOLE 500 mg/NS 100 ML IV SCH (05:09)
[2021-04-13] MEDS: hydrALAZINE HCL 25 MG TABLET GT SCH (05:13)
--- NOTE | 2021-04-13 06:48 | NUR ---
CLOSING NOTES: Patient in bed, eyes closed breathing evenly and nonlabored with trach to vent, patient tolerating it well, HOB elevated, no s/s of distress. Patient has a g tube. Patient has an IV site on the left hand 22G, patent, benign, and flushing. No s/s of infection or infiltration. Fall/safety/isolation precaution. All needs met at this time. Will continue to monitor and endorse care to morning shift nurse.
[2021-04-13 07:14] LABS: ANION GAP 4 (5-15); CALCIUM 7.8 mg/dL (8.4-11.0); CHLORIDE 107 mmol/L (98-107); CREATININE 0.36 mg/dL (0.55-1.30); GLUCOSE 167 mg/dL (70-99); POTASSIUM 3.3 mmol/L (3.5-5.1); SODIUM SERUM 140 mmol/L (136-145); UREA NITROGEN, BLOOD 12 mg/dL (8-21)
[2021-04-13 08:02] VITALS: BP_SYST 121
[2021-04-13] MEDS ORDERED: POTA10TA11 PO (08:17)
[2021-04-13] MEDS: MULTIVITS,CA,MINERALS/IRON/FA 1 TABLET GT SCH (08:57)
[2021-04-13] MEDS: PANTOPRAZOLE SODIUM 40 MG/VIAL (PROTONIX) IVP SCH (08:57)
[2021-04-13] MEDS: BISACODYL 10 MG/SUPPOSITORY RC SCH (08:57)
[2021-04-13] MEDS: FOLIC ACID 1 MG TABLET GT SCH (08:57)
[2021-04-13] MEDS: ASCORBIC ACID 500 MG TABLET GT SCH (08:57)
[2021-04-13] MEDS: amLODIPine BESYLATE 5 MG TABLET PO SCH (08:57)
[2021-04-13] MEDS: LOSARTAN POTASSIUM 50 MG TABLET (COZAAR) GT SCH (08:58)
[2021-04-13] MEDS: NEOMY SULF/BACITRAC ZN/POLY 28 GM OINT..GM. TP PRN (08:58)
[2021-04-13] MEDS: CHLORHEXIDINE GLUCONATE 15 ML/DOSE, 480 ML MM SCH (08:58)
[2021-04-13] MEDS: MUPIROCIN 2% TOPICAL OINTMENT 22 GM NS SCH (08:59)
--- NOTE | 2021-04-13 09:27 | NUR ---
Case mgt: Per nurse Damion, pt had low K level yesterday and that is why discharge held last night--I called aTniya at [facility] at [phone] and she confirmed bed 205A is still available-I told her Damion will call report to her--JUDITH RN
--- NOTE | 2021-04-13 09:41 | NUR ---
Case mgt:: S/W Cameron at [facility]-1 --CCT transport with 2 EMT/RT will pickle maker pt at noon today for mech trach/vent dependent MRSA +nares pt--I notified pt's [facility]--he is agreeable to this--Nurse Damion made aware of pickle maker time and he has transport packet for snf--JUDITH RN
[2021-04-13 10:13] VITALS: BP_SYST 121
--- NOTE | 2021-04-13 11:59 | NUR ---
DISCHARGE PT DISCHARGE TO [facility], G-TUBE CLAMPED AND INTACT. 20 CC RESIDUAL NOTED BEFORE DC OF FEEDING. ENDORSED TO NURSE HAL. PT STABLE. PT PICKED UP BY MEDIC STAFF. IV ACCESS DC, TAPED NO BLEEDING.
[2021-04-13 12:01] VITALS: BP_SYST 156
== END 2021-04-13 11:59 | DRG 393 ==
LOC: SED 02:33 → STU 05:55
PROVIDERS: ADMIT Family Medicine; ATTEND Family Medicine
PROC: 5A1955Z Respiratory Ventilation, Greater than 96 Consecutive Hours (ICD-10-PCS; principal; 2021-04-08)
PROC: 0DBK8ZZ Excision of Ascending Colon, Via Natural or Artificial Opening Endoscopic (ICD-10-PCS; 2021-04-12)
PROC: 0DBL8ZZ Excision of Transverse Colon, Via Natural or Artificial Opening Endoscopic (ICD-10-PCS; 2021-04-12)
PROC: 0DBN8ZZ Excision of Sigmoid Colon, Via Natural or Artificial Opening Endoscopic (ICD-10-PCS; 2021-04-12)
PROC: 0DBM8ZZ Excision of Descending Colon, Via Natural or Artificial Opening Endoscopic (ICD-10-PCS; 2021-04-12)
PROC: 0DBH8ZZ Excision of Cecum, Via Natural or Artificial Opening Endoscopic (ICD-10-PCS; 2021-04-12)
PROC: 0DH68UZ Insertion of Feeding Device into Stomach, Via Natural or Artificial Opening Endoscopic (ICD-10-PCS; 2021-04-12 11:00)
DX: K64.8 Other hemorrhoids (principal); J96.21 Acute and chronic respiratory failure with hypoxia; E43 Unspecified severe protein-calorie malnutrition; E87.1 Hypo-osmolality and hyponatremia; Z99.11 Dependence on respirator [ventilator] status; K94.23 Gastrostomy malfunction; Z68.42 Body mass index [BMI] 45.0-49.9, adult; E66.9 Obesity, unspecified; D64.9 Anemia, unspecified; K52.9 Noninfective gastroenteritis and colitis, unspecified; K56.41 Fecal impaction; R13.10 Dysphagia, unspecified; E78.5 Hyperlipidemia, unspecified; E83.41 Hypermagnesemia; M62.58 Muscle wasting and atrophy, not elsewhere classified, other site; Z20.822 Contact with and (suspected) exposure to COVID-19; E83.39 Other disorders of phosphorus metabolism; I11.9 Hypertensive heart disease without heart failure; Y83.8 Other surgical procedures as the cause of abnormal reaction of the patient, or of later complication, without mention of misadventure at the time of the procedure; Y92.238 Other place in hospital as the place of occurrence of the external cause; K63.5 Polyp of colon; Z86.73 Personal history of transient ischemic attack (TIA), and cerebral infarction without residual deficits; Z79.899 Other long term (current) drug therapy; Z90.710 Acquired absence of both cervix and uterus
CPT/HCPCS: 36415; 43246; 45384; 71045; 74018; 76376; 80048; 80053; 80061; 82150; 82962; 83036; 83690; 83735; 83880; 84100; 84132; 84439; 84443; 84484; 85025; 85610-TC; 85730-TC; 86886; 86900; 86901; 87081; 88305; 93005; 93306; 94002; 94003; 94640; 94760; 99285; C9113; G0378; J1956; J2175; J2250; J2765; J3475; J3490